=== PATIENT | female | born 1960 | race Caucasian/White ===

== ENCOUNTER 2016-09-04 11:47 | Emergency (ER) | payer OTHER, MEDICAID ==
[~2016-09-04] VITALS: Ht 167.6 cm; Wt 104.3 kg
[2016-09-04 15:23] LABS: BASOPHIL % 0.9 % (0-2); PLATELET COUNT 265 x10^3mcL (130-400)
[2016-09-04 15:27] LABS: CALCIUM 9.2 mg/dL (8.5-10.1); CARBON DIOXIDE 28.3 mmol/L (21-32); CHLORIDE SERUM 107 mmol/L (98-107); CREATININE SERUM 0.8 mg/dL (0.6-1.0); GFR1 > 60 mL/min; GLUCOSE SERUM 86 mg/dL (74-106); POTASSIUM SERUM 3.3 mmol/L (3.5-5.1); SODIUM SERUM 144 mmol/L (136-145)
[2016-09-04 15:29] LABS: RED CELL DISTRIBUTION WIDTH 15.5 % (11.5-14.5)
[2016-09-04 15:31] LABS: ALBUMIN 3.7 g/dL (3.4-5.0); ALKALINE PHOSPHATASE 115 U/L (46-116); ALT/SGPT 98 U/L (14-59); AST/SGOT 57 U/L (15-37); BILIRUBIN TOTAL 0.4 mg/dL (0.20-1.00); CHOLESTEROL 177 mg/dL (<200); MAGNESIUM 2.1 mg/dL (1.8-2.4); TOTAL PROTEIN, SERUM 7.5 g/dL (6.4-8.2)
[2016-09-04 15:32] LABS: HDL CHOLESTEROL 67 mg/dL (40-60)
[2016-09-04 16:07] LABS: microscopic required? YES; urine erythrocyte TRACE (NEGATIVE)
[2016-09-04 17:45] VITALS: BP 121/81
== END 2016-09-04 17:45 | disposition home or self-care (01) ==
LOC: ED 11:47
PROVIDERS: Emergency Medicine
DX: F41.0 Panic disorder [episodic paroxysmal anxiety] (principal); R51 Headache; N39.0 Urinary tract infection, site not specified; E78.00 Pure hypercholesterolemia, unspecified; E03.9 Hypothyroidism, unspecified; F17.210 Nicotine dependence, cigarettes, uncomplicated; Z71.6 Tobacco abuse counseling; Z86.59 Personal history of other mental and behavioral disorders
CPT/HCPCS: 82962; 83880; 99406; J2550; J7030; J8597; Q0092

== ENCOUNTER 2017-01-03 14:53 | Emergency (ER) | payer OTHER, MEDICAID ==
[~2017-01-03] VITALS: Ht 167.6 cm; Wt 93.4 kg
[2017-01-03 16:55] VITALS: BP 127/90
== END 2017-01-03 17:37 | disposition home or self-care (01) ==
LOC: ED 14:53
DX: G44.209 Tension-type headache, unspecified, not intractable (principal)
CPT/HCPCS: J0780; J1885

== ENCOUNTER 2017-01-20 17:35 | Emergency (ER) | payer OTHER, MEDICAID ==
[~2017-01-20] VITALS: Ht 167.6 cm; Wt 86.2 kg
[2017-01-20 19:53] VITALS: BP 155/91
== END 2017-01-20 19:53 | disposition home or self-care (01) ==
LOC: ED 17:35
DX: G43.909 Migraine, unspecified, not intractable, without status migrainosus (principal); F41.9 Anxiety disorder, unspecified; F32.9 Major depressive disorder, single episode, unspecified
CPT/HCPCS: J1885

== ENCOUNTER 2017-05-03 12:59 | Emergency (ER) | payer OTHER, MEDICAID ==
[~2017-05-03] VITALS: Ht 157.5 cm; Wt 81.6 kg
[2017-05-03 13:13] VITALS: Ht 157.5 cm; Wt 81.6 kg
[2017-05-03 19:35] VITALS: BP 138/80
== END 2017-05-03 19:35 | disposition home or self-care (01) ==
LOC: ED 12:59
DX: G43.909 Migraine, unspecified, not intractable, without status migrainosus (principal); G47.00 Insomnia, unspecified; Z85.3 Personal history of malignant neoplasm of breast
CPT/HCPCS: J1200; J2765; J3490; J7030